=== PATIENT | male | born 1975 | race Caucasian/White ===

== ENCOUNTER 2017-07-30 08:06 | Emergency (ER) | payer OTHER ==
[~2017-07-30] VITALS: Ht 167.6 cm; Wt 74.6 kg
[2017-07-30 09:11] LABS: MCH 34.1 PG (29.0-34.0); MCHC 34.6 G/DL (30.0-36.0); MCV 98.4 FL (86-99); MEAN PLAT.VOLUME 9.3 uM^3 (9.0-12.4); PLATELET COUNT 102 K/uL (156-360); RBC DIS.WIDTH-CV 12.2 % (11.8-14.6); RBC DIS.WIDTH-SD 44.6 % (39-53); RED BLOOD COUNT 5.08 M/uL (4.00-5.50); WHITE BLOOD COUNT 5.6 K/uL (4.1-10.2)
[2017-07-30 09:15] LABS: CHLORIDE 103 mEq/L (99-109); SODIUM 142 mEq/L (136-147)
[2017-07-30 09:16] LABS: GLUCOSE 171 mg/dL (70-99)
[2017-07-30 09:18] LABS: ANION GAP 21 MEQ/L (2-14)
[2017-07-30 09:20] LABS: GFR ESTIMATE (CALCULATED) > 59 mL/min/; SERUM ETHYL ALCOHOL 64 mg/dL
[2017-07-30 09:21] LABS: UREA NITROGEN (BUN) 7 mg/dL (9-23)
[2017-07-30 10:24] LABS: MAGNESIUM 1.6 mg/dL (1.3-2.7)
[2017-07-30 13:37] VITALS: BP 178/100
== END 2017-07-30 13:42 | disposition home or self-care (01) ==
LOC: EDBD 08:06 → EME 08:06
PROVIDERS: Nurse Practitioner Family
DX: F10.239 Alcohol dependence with withdrawal, unspecified (principal); G25.2 Other specified forms of tremor; R11.2 Nausea with vomiting, unspecified; I10 Essential (primary) hypertension
CPT/HCPCS: 80048; 81003; 82040; 83735; 85027; 99281; 99284; G0480; J2060; J2405; J7030